=== PATIENT | female | born 1980 | race Caucasian/White ===

== ENCOUNTER 2016-12-09 23:17 | Emergency (ER) | payer OTHER ==
--- NOTE | ~2016-12-09 | CR72 ---
[facility] A Service of [facility] & [facility] RADIOLOGY TEXT RESULTS PATIENT: TERESITA DEL REAL LOCATION: [facility] : [birth year] UNIT #: [id number] AGE: [address]: Jonna Contreras MD SEX: F ORDER DR: [id number] [facility] [address] [place], [place] [address] [id number] E MR#: [id number] Acc #: [id number] NAME: TERESITA DEL REAL. : 1980 SEX: F STUDY DATE/TIME: 12/10/2016 1:24 UNIT: CFTX ROOM: STUDY DESCRIPTION: CR Chest Single View Portable Attending Physician: Jonna Contreras M.D. Ordering Physician: Ross Mireles D.O. Primary Care Physician: Primary Care Physician No MEDICAL IMAGING REPORT This report is preliminary unless electronic signature is present EXAM Chest x-ray 12/10/2016 HISTORY 36-year-old female in the ED with shortness of air after drug overdose tonight. TECHNIQUE AP portable chest x-ray. FINDINGS The exam shows no active disease. Shallow lung expansion is noted, but the lungs appear clear. Heart size and pulmonary vascularity are normal. No significant change since 09/01/2013. IMPRESSION No active disease. Dictated by... Mart Pendleton M.D. THIS IS AN ELECTRONICALLY VERIFIED REPORT Mart Pendleton M.D. at 12/10/2016 9:57 PM MARITO/jose TD: 12/10/2016 09:04 JOB #: [id number] MEDICAL IMAGING REPORT Page 1 of 1 COPY
--- NOTE | ~2016-12-09 | EKG ---
PATIENT: TERESITA DEL REAL UNIT #: [id number] Ventricular Rate: 82 BPM Atrial Rate: 82 BPM P-R Interval: 124 ms QRS Duration: 98 ms Q-T Interval: 412 ms QTC Calculation(Bezet): 481 ms P [place]out[place]: 33 degrees Calculated R [place]outle: 10 degrees Calculated T Toutle: 13 degrees Diagnosis Line: Normal sinus rhythm Diagnosis Line: RSR' or QR pattern in V1 suggests right Diagnosis Line: ventricular conduction delay Diagnosis Line: Prolonged QT Diagnosis Line: Abnormal ECG Diagnosis Line: When compared with ECG of 01-SEP-2013 04:41, Diagnosis Line: No significant change was found Diagnosis Line: Confirmed by LAXMI PETER MD ([id number]) on Diagnosis Line: 12/10/2016 10:42:03 PM INTERPRETING MD: DEACON
--- NOTE | ~2016-12-09 | CT71 ---
[facility] A Service of [facility] RADIOLOGY TEXT RESULTS PATIENT: TERESITA DEL REAL LOCATION: [facility] : 76 UNIT #: [id number] AGE: [address]: Jonna Contreras MD SEX: F ORDER DR: [id number] [facility] [address] [facility]. [place], [place] [address] [id number] E MR#: [id number] Acc #: [id number] NAME: TERESITA DEL REAL. : 1980 SEX: F STUDY DATE/TIME: 12/10/2016 1:06 UNIT: CFTX ROOM: STUDY DESCRIPTION: CT Head Wo Contrast Attending Physician: Jonna Contreras M.D. Ordering Physician: Ross Mireles D.O. Primary Care Physician: Primary Care Physician No MEDICAL IMAGING REPORT This report is preliminary unless electronic signature is present EXAM CT head, noncontrast, 12/10/2016 HISTORY 36-year-old female in the ED with confusion/mental status changes beginning tonight. Reported drug overdose and ethanol intoxication. TECHNIQUE CT examination of the head without IV contrast This CT exam was performed with one or more of the following radiation dose reduction techniques: automatic exposure control, adjustment of mA and/or kV according to patient size, and iterative reconstruction. FINDINGS The examination is negative. No evidence of intracranial hemorrhage, mass, mass effect, cerebral edema, hydrocephalus or additional abnormality. No change since the previous study of 02/03/2016. IMPRESSION Negative head CT examination. No change since 02/03/2016. Dictated by... Mart Pendleton M.D. THIS IS AN ELECTRONICALLY VERIFIED REPORT Mart Pendleton M.D. at 12/10/2016 9:57 PM MARITO/tre TD: 12/10/2016 09:01 JOB #: [id number] MEDICAL IMAGING REPORT [facility] A Service [facility] RADIOLOGY TEXT RESULTS PATIENT: TERESITA DEL REAL LOCATION: [facility] : 76 UNIT #: [id number] AGE: [address]: Jonna Contreras MD SEX: F ORDER DR: Page 1 of 1 COPY
[~2016-12-09 23:17] MED LIST: ALBUTEROL17 GM INH; AMITRYPTYLINE PO; AMOXICILLIN PO; AMOXICILLIN500 M1 PO; ANAPROX DS550 M1 PO; BACTRIM DS TABL1 TA1 PO; CELEXA PO; CELEXA20 MG PO; DARVOCET-N 1001 TA1 DOB; DESYREL100 MG PO; DICLOFENAC PO; ERY-TAB500 MG PO; FAMOTIDINE PO; FLEXERIL10 MG PO; FOLIC ACID PO; K-DUR20 ME1 PO; LIBRIUM PO; LIBRIUM5 MG PO; MEDROL PO; MOBIC PO; MULTI VITAMIN1 EACH PO; MULTIVITAMIN W-1 TAB PO; NAPROSYN500 MG PO; NO MEDICATIONS; PEN-VEE K PO; PEPCID AC20 M2 PO; PHENERGAN DM1 ML DOB; PHENERGAN W/CO120 ML PO; PHENERGAN25 M1 PO; PHENERGAN25 MG PO; PREDNISONE PO; PYRIDIUM PO; TAMIFLU75 M1 PO; THIAMINE HCL100 MG PO; TRAZODONE PO; VIBRAMYCIN100 M1 PO; VICODIN 5/500 T1 TAB PO; ZITHROMAX PO; ZOFRAN ODT4 MG PO; ZOFRAN PO
[2016-12-10 01:22] LABS: BASOPHIL# 0.1 X10e3 (0-0.3); BASOPHIL% 1.5 % (0-2.5); DIFF IND NO; EOSINOPHIL# 0.1 X10e3 (0-0.7); EOSINOPHIL% 1.1 % (0.0-7.0); HEMATOCRIT 41.5 % (35.0-45.0); HEMOGLOBIN 13.6 gm/dL (12.0-16.0); LYMPHOCYTE# 2.9 X10e3 (1.0-3.5); LYMPHOCYTE% 31.1 % (17.0-45.0); MEAN CELL VOLUME 100.6 FL (83-96); MEAN CORPUSCULAR HEMOGLOBIN 33.1 PG (28-34); MEAN CORPUSCULAR HGB CONC 32.9 g/dL (30-36); MEAN PLATELET VOLUME 9.6 FL (6.5-11.5); MONOCYTE# 0.3 X10e3 (0-1.0); MONOCYTE% 3.8 % (3.0-12.0); NEUTROPHIL# 5.7 X10e3 (1.5-7.1); NEUTROPHIL% 62.5 % (40-75); PLATELET COUNT 195 X10e3 (140-420); RED BLOOD COUNT 4.12 X10e (3.90-5.30); RED CELL DISTRIBUTION WIDTH 14.3 % (11.0-15.5); WHITE BLOOD COUNT 9.2 X10e3 (4.0-10.5)
[2016-12-10 01:38] LABS: AMPHETAMINE NEG (NEG); BARBITURATES NEG (NEG); BENZODIAZEPINES NEG (NEG); COCAINE NEG (NEG); MARIJUANA NEG (NEG); OPIATES NEG (NEG); TRICYCLIC ANTIDEPRESSANTS NEG (NEG); U METHADONE NEG (NEG)
[2016-12-10 01:39] LABS: ALBUMIN SERUM 4.3 g/dL (3.5-5.0); ALKALINE PHOSPHATASE 44 U/L (32-92); ALT (SGPT) 31 U/L (10-40); AST (SGOT) 51 U/L (10-42); BILIRUBIN, DIRECT 0.2 mg/dL (0.0-0.2); BILIRUBIN,INDIRECT 0.5 mg/dL (0.0-0.9); BILIRUBIN,TOTAL 0.7 mg/dL (0.2-2.0); BLOOD UREA NITROGEN 11 mg/dL (9-23); CALCIUM SERUM 8.5 mg/dL (8.4-10.2); CARBON DIOXIDE 19 mmol/L (22-31); CHLORIDE 106 mmol/L (100-111); CREATININE SERUM 0.5 mg/dL (0.6-1.4); GLOM FILT RATE Estimated 122.8 mL/min (>60); GLUCOSE FASTING 68 mg/dL (70-110); POTASSIUM 3.6 mmol/L (3.5-5.1); PROTEIN TOTAL SERUM 7.4 g/dL (6.0-8.3); SALICYLATE <4.0 mg/dL; SODIUM 139 mmol/L (135-145)
[2016-12-10 01:47] LABS: ACETAMINOPHEN <10 ug/mL
[2016-12-10 01:48] LABS: ALCOHOL BLOOD 338 mg/dL (0)
[2016-12-10 03:00] LABS: URINE SOURCE CLEAN CATCH
[2016-12-10 03:23] LABS: URINE APPEARANCE CLEAR; URINE BILIRUBIN NEG (NEG); URINE BLOOD NEG (NEG); URINE COLOR YELLOW; URINE GLUCOSE NEG (NEG); URINE KETONE NEG (NEG); URINE LEUKOCYTE ESTERASE NEG (NEG); URINE NITRATE NEG (NEG); URINE PROTEIN NEG (NEG); URINE SPECIFIC GRAVITY 1.012 (1.003-1.035); URINE UROBILINOGEN 0.2 MG/DL (NEG)
[2016-12-10 03:24] LABS: CULTURE INDICATED? NO
== END 2016-12-10 13:30 ==
LOC: CED 23:17 → CFTX 23:55 → CED 12-10 13:30
PROVIDERS: Emergency Medicine
DX: T43.222A Poisoning by selective serotonin reuptake inhibitors, intentional self-harm, initial encounter (principal); F10.129 Alcohol abuse with intoxication, unspecified; F17.210 Nicotine dependence, cigarettes, uncomplicated; Y90.8 Blood alcohol level of 240 mg/100 ml or more; Z79.899 Other long term (current) drug therapy
CPT/HCPCS: 36415; 51701; 70450; 71010; 80048; 80076; 80307; 81003; 82947; 84484; 84703; 85025; 93005; 96361; 96374; 96375; 99285; G0480; J2405; J2550

== ENCOUNTER 2016-12-10 10:00 | Inpatient (IN) | payer OTHER ==
--- NOTE | ~2016-12-10 | DS ---
Unit #: [id number] #: [id number] Patient: TERESITA DEL REAL [id number] [facility] [address] [place] [address] [id number] I MR#: [id number] NAME: TERESITA DEL REAL. ROOM: [facility] Age: 36 Sex: F Admission Date: 12/10/2016 : 1980 Discharge Date: 12/13/2016 Attending Physician: Marcin Bucio M.D. Primary Care Physician: Primary Care Physician No DISCHARGE SUMMARY REASON FOR ADMISSION Suicidal ideation and overdose. DIAGNOSTIC STUDIES LABORATORY RESULTS: Unremarkable. HOSPITAL COURSE The patient was admitted to inpatient unit on 12/10/2016 and discharged on 12/13/2016. The patient was treated on the inpatient unit with chemical dependency group and structured milieu. The patient was responsive to treatment and showed improvement in mood and affect. Subsequently, the patient was discharged with a plan to follow up in outpatient clinic. DISCHARGE MEDICATIONS None. DISCHARGE DIAGNOSES Psychiatric: 1. Major depressive disorder, recurrent, severe, F33.2. 2. Alcohol use disorder, severe, F10.20. Secondary diagnosis: Deferred. Medical diagnosis: None. Stressors: Psychosocial stressors. DISCHARGE INSTRUCTIONS The patient is to follow up in outpatient clinic as per social service manager. CONDITION ON DISCHARGE The patient was pleasant and cooperative. Denied any psychotic symptom or any suicidal ideation. PROGNOSIS Guarded. DIET AND ACTIVITY As tolerated. The patient was advised to follow up in IOP level of care at this time and plan to consider medication at a later date. Unit #: [id number] #: [id number] Patient: TERESITA DEL REAL Dictated by... Gavin Dior/deyanira TD: 12/14/2016 04:08 JOB #: [id number] DISCHARGE SUMMARY Page 1 of 1 X Marcin Bucio MD X DISCHARGE SUMMARY
--- NOTE | ~2016-12-10 | PN ---
Unit #: [id number] #: [id number] Patient: CHINEDU DEL REAL [id number] [facility] [address] [place] [address] [id number] I MR#: [id number] NAME: CHINEDU DEL REAL. ROOM: [facility] Age: 36 Sex: F Admission Date: 12/10/2016 : 1980 Attending Physician: Marcin Bucio M.D. Admitting Physician: Marcin Bucio M.D. Primary Care Physician: Primary Care Physician Marlin SHUKLA PROGRESS NOTES DATE 12/11/2016 DISCUSSION Chinedu Del Real is a 36-year-old female seen on 12/11/2016. Patient interviewed. Chart reviewed. Obtained information from nursing staff. Patient compliant, cooperative. Mood sad, dysphoric, withdrawn, isolative, flat affect, passive SI. Complete review of system unremarkable. MENTAL STATUS EXAMINATION General appearance, patient dressed casually. Attention span, concentration fair. Oriented in place and person. Mood and affect sad, depressed. Speech monotone. Thought process concrete. Patient reported passive SI, guarded, withdrawn. Recent and remote memory poor. Insight and judgement impaired. Vital signs, 98.4, 64, 133/91. DIAGNOSES 1. Major depressive disorder, recurrent. 2. Alcohol use disorder, severe. ASSESSMENT/PLAN Advised to continue with current programming on the inpatient unit and detox protocol. Detox monitoring. Advised to discontinue Lexapro. Dictated by... Gavin Dior/balbina TD: 12/12/2016 15:27 JOB #: [id number] Unit #: [id number] #: [id number] Patient: CHINEDU DEL REAL PROGRESS NOTES Page 1 of 1 X Marcin Bucio MD X PROGRESS NOTE
--- NOTE | ~2016-12-10 | PA ---
Unit #: [id number] #: [id number] Patient: CHINEDU DEL REAL [id number] [facility] [address] [place] [address] [id number] I MR#: [id number] NAME: CHINEDU DEL REAL. ROOM: [facility] Age: 36 Sex: F Admission Date: 12/10/2016 : 1980 Date of Assessment: Attending Physician: Marcin Bucio M.D. Admitting Physician: Marcin Bucio M.D. Primary Care Physician: Primary Care Physician No PSYCHIATRIC ASSESSMENT INFORMANTS The patient's reliability, fair; chart reliability, good. CHIEF COMPLAINT Depression and suicidal ideation. HISTORY OF PRESENT ILLNESS Chinedu Del Real is a 36-year-old female, presented with the above-mentioned complaint. The patient presented at [facility], reports taking overdose of Lexapro 23 tablets with the intention to kill herself. The patient was cooperative, understand about getting help. The patient stated that she was working in a yard and became very hot and called 911. The patient reported later taking 2 Lexapro and only 2 shots of vodka. The patient later revealed taking 23 tablets. The patient's alcohol level was 362 upon arrival. The patient reported feeling sad, depressed, suicidal ideation, depression. Needing inpatient admission at this time for psychiatric stabilization. The patient is currently on Lexapro, reported use of alcohol recently and alcohol level 362 on arrival to the hospital. Denied any history of blackout, HIV, hepatitis, or withdrawal symptom. No history of IV drug use. Needing inpatient admission at this time for psychiatric stabilization. PAST PSYCHIATRIC HISTORY Remarkable for history of previous treatment at [facility] in 2012. FAMILY HISTORY AND SOCIAL HISTORY Unremarkable. No history of abuse. No legal problem. MEDICAL HISTORY Unremarkable for any chronic medical condition. Musculoskeletal; muscle strength and tone, no atrophy or abnormal movement. Gait normal. MEDICATION HISTORY Lexapro. ALLERGIES No known drug allergies. SUBSTANCE ABUSE HISTORY Please see above. REVIEW OF SYSTEMS HEENT: Eyes, clear. Ears, nose, mouth, and throat; clear. Unit #: [id number] #: [id number] Patient: CHINEDU DEL REAL CARDIOVASCULAR: Unremarkable. RESPIRATORY: Unremarkable. GI: Unremarkable. : Unremarkable. SKIN: Unremarkable. LYMPH NODE: Unremarkable. NEUROLOGIC: Unremarkable. ENDOCRINE: Unremarkable. HEMATOLOGIC: Unremarkable. ALLERGIC/IMMUNOLOGIC: Unremarkable. MUSCULOSKELETAL: Muscle strength and tone, no atrophy or abnormal movement. Gait normal. MENTAL STATUS EXAMINATION CONSTITUTIONAL: Measurement of vital signs; temperature 98.9, pulse 64, respirations 16, blood pressure 133/91. GENERAL APPEARANCE: The patient dressed casually. The patient did not show any facial deformity. MUSCULOSKELETAL: Please see above. PSYCHIATRIC EXAMINATION Description of speech; regular rate, normal volume. Description of thought process, goal directed. Description of association, intact. Description of abnormal psychotic thinking; the patient denied any hallucination or delusions, but suicidal ideation, suicide attempt, substance abuse. Description of the patient's judgment; concerning everyday activity, poor. Social situation, poor. Concerning psychiatric condition, poor. Complete mental status examination; oriented in time, place, and person. Recent and remote memory, fair. Attention span and concentration, fair. Language, able to name object and repeat phrases. Fund of knowledge, fair. Vocabulary, fair. Mood and affect, sad and dysphoric. Insight and judgment, fair to poor. ASSETS AND LIABILITIES Assets; the patient is articulate, able to take care of her ADL. Liability; history of depression, alcohol abuse. ADMITTING DIAGNOSES Psychiatric: Major depressive disorder, recurrent, severe, F33.2; alcohol use disorder, severe, F10.20. Secondary diagnosis: Deferred. Medical diagnosis: None. Stressors: Psychosocial stressors. PSYCHIATRIC PLAN AND TREATMENT GOAL 1. Advised to admit the patient on the inpatient unit. Provide safe, supportive, and structured environment. 2. Ordered labs; CBC, CMP, UA, and UDS. 3. Advised to discontinue Lexapro at this time. Detox protocol and detox monitoring. The patient to be monitored closely. The patient to attend all the programing on the inpatient unit with group therapy, individual therapy, family session. Treatment goal to attain euthymic mood, gain insight into her problem, and learn coping skills. Unit #: [id number] #: [id number] Patient: CHINEDU DEL REAL DISCHARGE PLAN Plan to stabilize the patient and consider followup in outpatient program such as [facility] level of care. ESTIMATED LENGTH OF STAY 3 to 5 days. Dictated by... Marcin Bucio M.D. ELIDA/deyanira TD: 12/12/2016 03:49 JOB #: [id number] PSYCHIATRIC ASSESSMENT Page 1 of 1 X Marcin Bucio MD PSYCHIATRIC ASSESSMENT
--- NOTE | ~2016-12-10 | PN ---
Unit #: [id number] #: [id number] Patient: CHINEDU DEL REAL [id number] [facility] [address] [place] [address] [id number] I MR#: [id number] NAME: CHINEDU DEL REAL. ROOM: P204 Age: 36 Sex: F Admission Date: 12/10/2016 : 1980 Attending Physician: Marcin Bucio M.D. Admitting Physician: Marcin Bucio M.D. Primary Care Physician: Primary Care Physician No GAYLA PROGRESS NOTES DATE OF SERVICE 12/12/16 DISCUSSION Ms. Chinedu Del Real is a 36-year-old female seen on 12/12/16. Patient interviewed, chart reviewed, I obtained information from nursing staff. Patient compliant, cooperative. Mood sad, dysphoric but denied any suicidal or homicidal ideation. Maintained safe behavior. COMPLETE REVIEW OF SYSTEMS Unremarkable. MENTAL STATUS EXAMINATION GENERAL APPEARANCE: Patient dressed casually. ATTENTION SPAN AND CONCENTRATION: Fair. Oriented in place and person. MOOD AND AFFECT: Labile. SPEECH: Monotone. THOUGHT PROCESS: [place]. Patient denied any thoughts of harming self or others. RECENT AND REMOTE MEMORY: Poor. INSIGHT AND JUDGMENT: Poor. DIAGNOSIS Mood disorder, NOS ASSESSMENT/PLAN Advised to continue with current medication and therapeutic protocol. If needed, consider further adjustment in medication. Dictated by... Gavin Dior/norman TD: 12/13/2016 23:20 JOB #: [id number] Unit #: [id number] #: [id number] Patient: CHINEDU DEL REAL PROGRESS NOTES Page 1 of 1 X Marcin Bucio MD X PROGRESS NOTE
--- NOTE | ~2016-12-10 | HP ---
Unit #: [id number] #: [id number] Patient: CHINEDU DEL REAL [id number] [place] [address] [id number] I MR#: [id number] NAME: CHINEDU DEL REAL. ROOM: 86 Age: 36 Sex: F Admission Date: 12/10/2016 : 1980 Attending Physician: Marcin Bucio M.D. Admitting Physician: Marcin Bucio M.D. Primary Care Physician: Primary Care Physician No HISTORY AND PHYSICAL HISTORY OF PRESENT ILLNESS Chinedu is a 36 year old admitted to [facility] because of her abuse of alcohol. PAST MEDICAL HISTORY Long history of alcohol abuse. PAST SURGICAL HISTORY x1. ALLERGIES No known drug allergies. SOCIAL HISTORY Smokes one pack per day. Drinks 2 packs of liquor on a daily basis. Denies illicit drug use. FAMILY HISTORY Medically noncontributory. REVIEW OF SYSTEMS CONSTITUTIONAL: No fever or chills. HEENT: Denies any sore throat, ear pain or runny nose. CARDIOVASCULAR: Denies chest pain, irregular heart rhythm or palpitations. CHEST: Denies shortness of breath or cough. No hemoptysis. GASTROINTESTINAL: Denies nausea, vomiting, diarrhea or chronic constipation. ENDOCRINE: Denies history of increased thirst or urination. No recent significant weight loss or gain. GENITOURINARY: Denies dysuria, frequency, or hematuria. SKIN: Denies any rashes. HEMATOLOGIC: Denies history of increased bleeding or bruising. MUSCULOSKELETAL: Denies any hot, swollen joints. No generalized muscle pain. NEUROLOGIC: Denies problems with vision or speech. No frequent, severe headaches. No numbness, tingling or weakness in any extremities. Denies loss of bladder or bowel control. CURRENT MEDICATIONS 1. Detox protocol. 2. Lexapro 10 mg q. day. PHYSICAL EXAMINATION GENERAL: Alert. No apparent distress. Unit #: [id number] #: [id number] Patient: CHINEDU DEL REAL VITAL SIGNS: Blood pressure 132/90, heart rate 80, respirations 16, and temperature 98.6. WEIGHT: 156. HEIGHT: 5 feet 4 inches. SKIN: Warm and dry without rash or lesion. HEENT: Normocephalic. TMs not viewed. Oral and nasal passages clear. Conjunctivae clear. PERRLA. EOMs intact. NECK: Supple without lymphadenopathy or thyromegaly. HEART: Regular rate and rhythm without murmur. LUNGS: Clear. ABDOMEN: Soft, nontender. : Not done. EXTREMITIES: No evidence of cyanosis, clubbing or edema. Moves all without focal deficit. NEUROLOGICAL: Grossly within normal limits. Cranial Nerves: II: Visual nix are intact. III, IV AND : Extraocular movements are intact. Pupils are equal, round and reactive to light. V: Facial sensation is grossly normal. VII: Facial movements and expression are normal. VIII: Auditory acuity grossly intact. IX, X: Uvula is midline. Phonation is normal. XI: Patient shrugs shoulders and turns head normally. XII: Tongue protrudes in the midline. Sensory and Motor Function: Sensory and motor sensation is grossly normal. Motor: moves all extremities well. Coordination: Gait is normal. Deep Tendon Reflexes: Intact. IMPRESSION Psychiatric admission. RECOMMENDATIONS PSYCHIATRIC: Per psychiatrist. MEDICAL: I see no contraindication to participate in this facility's activities. MEDICAL PROGNOSIS Good. MEDICAL CONDITION Stable. Dictated by... Michel TejedaAAustin. for Gavin Marroquin/breanna TD: 12/11/2016 12:03 JOB #: [id number] Unit #: [id number] #: [id number] Patient: CHINEDU DEL REAL HISTORY AND PHYSICAL Page 1 of 1 X Christine Srivastava HISTORY AND PHYSICAL
== END 2016-12-13 14:00 | disposition home or self-care (01) | DRG 885 ==
LOC: P1E 14:05 → P2S 12-12 19:44
PROC: HZ2ZZZZ Detoxification Services for Substance Abuse Treatment (ICD-10-PCS; principal; 2016-12-10)
DX: F33.2 Major depressive disorder, recurrent severe without psychotic features (principal); F10.20 Alcohol dependence, uncomplicated; F17.210 Nicotine dependence, cigarettes, uncomplicated; Y90.8 Blood alcohol level of 240 mg/100 ml or more
CPT/HCPCS: 84703; 86592

== ENCOUNTER 2016-12-21 01:31 | Emergency (ER) | payer OTHER ==
--- NOTE | ~2016-12-21 | CR72 ---
[facility] A Service of [facility] & [facility] RADIOLOGY TEXT RESULTS PATIENT: TERESITA DEL REAL LOCATION: [facility] : [birth year] UNIT #: [id number] AGE: [address]: Jarred Martinez SEX: F ORDER DR: [id number] [facility] [address] [facility]. [place], [place] [address] [id number] E MR#: [id number] Acc #: [id number] NAME: TERESITA DEL REAL : 1980 SEX: F STUDY DATE/TIME: 12/21/2016 3:04 UNIT: [facility] ROOM: STUDY DESCRIPTION: CR Chest Single View Portable Attending Physician: Jarred Martinez P.A.-C. Ordering Physician: Jarred Martinez P.A.-C. Primary Care Physician: Primary Care Physician No MEDICAL IMAGING REPORT This report is preliminary unless electronic signature is present EXAM Portable chest, 12/21 COMPARISON 12/10/16 INDICATIONS Shortness of breath starting tonight. FINDINGS A portable view of the chest is obtained. The heart size and vascularity are normal and the lungs are clear. The bones are unremarkable. IMPRESSION No active disease. Dictated by... Lino Zambrano M.D. THIS IS AN ELECTRONICALLY VERIFIED REPORT Lino Zambrano M.D. at 12/21/2016 4:42 AM MONAE/norman TD: 12/21/2016 03:57 JOB #: [id number] MEDICAL IMAGING REPORT Page 1 of 1 COPY
[2016-12-21 03:03] LABS: BASOPHIL# 0.1 X10e3 (0-0.3); BASOPHIL% 0.8 % (0-2.5); DIFF IND NO; EOSINOPHIL# 0.1 X10e3 (0-0.7); EOSINOPHIL% 1.8 % (0.0-7.0); HEMATOCRIT 35.8 % (35.0-45.0); LYMPHOCYTE# 2.6 X10e3 (1.0-3.5); LYMPHOCYTE% 31.4 % (17.0-45.0); MEAN CELL VOLUME 99.6 FL (83-96); MEAN CORPUSCULAR HEMOGLOBIN 33.4 PG (28-34); MEAN CORPUSCULAR HGB CONC 33.5 g/dL (30-36); MEAN PLATELET VOLUME 8.8 FL (6.5-11.5); MONOCYTE# 0.4 X10e3 (0-1.0); MONOCYTE% 5.2 % (3.0-12.0); NEUTROPHIL% 60.8 % (40-75); PLATELET COUNT 191 X10e3 (140-420); RED BLOOD COUNT 3.59 X10e (3.90-5.30); WHITE BLOOD COUNT 8.3 X10e3 (4.0-10.5)
[2016-12-21 03:20] LABS: AMPHETAMINE NEG (NEG); BARBITURATES NEG (NEG); BENZODIAZEPINES NEG (NEG); COCAINE NEG (NEG); MARIJUANA NEG (NEG); OPIATES NEG (NEG); TRICYCLIC ANTIDEPRESSANTS NEG (NEG); U METHADONE NEG (NEG)
[2016-12-21 03:39] LABS: ALBUMIN SERUM 3.8 g/dL (3.5-5.0); BILIRUBIN,TOTAL 0.3 mg/dL (0.2-2.0); CALCIUM SERUM 8.4 mg/dL (8.4-10.2); CREATININE SERUM 0.5 mg/dL (0.6-1.4); GLOM FILT RATE Estimated 122.8 mL/min (>60); PROTEIN TOTAL SERUM 6.6 g/dL (6.0-8.3)
[2016-12-21 03:40] LABS: BILIRUBIN, DIRECT 0.1 mg/dL (0.0-0.2); BILIRUBIN,INDIRECT 0.2 mg/dL (0.0-0.9); POTASSIUM 2.9 mmol/L (3.5-5.1)
== END 2016-12-21 04:17 | disposition home or self-care (01) ==
LOC: CED 01:31
PROVIDERS: Physician Assistant
DX: F10.10 Alcohol abuse, uncomplicated (principal); I10 Essential (primary) hypertension; F32.9 Major depressive disorder, single episode, unspecified; F17.200 Nicotine dependence, unspecified, uncomplicated; Y90.8 Blood alcohol level of 240 mg/100 ml or more
CPT/HCPCS: 36415; 71010; 80048; 80076; 80307; 84703; 85025; 96365; 96375; 99285; G0480; J2405; J3411; J3475

== ENCOUNTER 2017-03-01 20:49 | Emergency (ER) | payer OTHER ==
[~2017-03-01] VITALS: Ht 162.6 cm; Wt 72.6 kg
--- NOTE | ~2017-03-01 | EKG ---
PATIENT: TERESITA DEL REAL UNIT #: [id number] Ventricular Rate: 79 BPM Atrial Rate: 79 BPM P-R Interval: 120 ms QRS Duration: 102 ms Q-T Interval: 402 ms QTC Calculation(Bezet): 460 ms P [place]: 38 degrees Calculated R [place]: 20 degrees Calculated T [place]: 38 degrees Diagnosis Line: Normal sinus rhythm Diagnosis Line: RSR' or QR pattern in V1 suggests right Diagnosis Line: ventricular conduction delay Diagnosis Line: Borderline ECG Diagnosis Line: When compared with ECG of 10-DEC-2016 00:51, Diagnosis Line: No significant change was found Diagnosis Line: Confirmed by LAXMI PETER MD ([id number]) on Diagnosis Line: 03/06/2017 11:09:36 PM INTERPRETING MD: DEACON
[2017-03-01 21:32] LABS: URINE SOURCE CLEAN CATCH
[2017-03-01 21:34] LABS: BASOPHIL# 0.1 X10e3 (0-0.3); BASOPHIL% 0.9 % (0-2.5); EOSINOPHIL# 0.1 X10e3 (0-0.7); EOSINOPHIL% 0.6 % (0.0-7.0); HEMATOCRIT 43.9 % (35.0-45.0); HEMOGLOBIN 14.9 gm/dL (12.0-16.0); LYMPHOCYTE# 3.3 X10e3 (1.0-3.5); LYMPHOCYTE% 30.6 % (17.0-45.0); MEAN CELL VOLUME 97.4 FL (83-96); MEAN CORPUSCULAR HEMOGLOBIN 33.1 PG (28-34); MEAN CORPUSCULAR HGB CONC 33.9 g/dL (30-36); MEAN PLATELET VOLUME 8.6 FL (6.5-11.5); MONOCYTE# 0.4 X10e3 (0-1.0); MONOCYTE% 4.2 % (3.0-12.0); NEUTROPHIL# 6.8 X10e3 (1.5-7.1); NEUTROPHIL% 63.7 % (40-75); PLATELET COUNT 227 X10e3 (140-420); RED BLOOD COUNT 4.51 X10e (3.90-5.30); RED CELL DISTRIBUTION WIDTH 13.5 % (11.0-15.5); WHITE BLOOD COUNT 10.7 X10e3 (4.0-10.5)
[2017-03-01 21:35] LABS: URINE APPEARANCE CLEAR; URINE BILIRUBIN NEG (NEG); URINE BLOOD 3+ (NEG); URINE COLOR YELLOW; URINE GLUCOSE NEG (NORM); URINE KETONE NEG (NEG); URINE LEUKOCYTE ESTERASE NEG (NEG); URINE NITRATE NEG (NEG); URINE PH 5.5 (5-8); URINE PROTEIN NEG (NEG); URINE SPECIFIC GRAVITY <=1.005 (1.003-1.035); URINE UROBILINOGEN 0.2 MG/DL (NORM)
[2017-03-01 21:36] LABS: DIFF IND NO
[2017-03-01 21:36] LABS: MICRO INDICATED? YES
[2017-03-01 21:44] LABS: URINE BACTERIA 1+ (NEG); URINE SQUAMOUS EPITHELIAL CELL FEW /[HPF]
[2017-03-01 21:46] LABS: CULTURE INDICATED? YES; URINE WBC 0-2 /[HPF] (0-5)
[2017-03-01 21:49] LABS: AMPHETAMINE NEG (NEG); BARBITURATES NEG (NEG); BENZODIAZEPINES NEG (NEG); COCAINE NEG (NEG); MARIJUANA NEG (NEG); OPIATES NEG (NEG); TRICYCLIC ANTIDEPRESSANTS NEG (NEG); U METHADONE NEG (NEG)
[2017-03-01 21:54] LABS: ACETAMINOPHEN 14 ug/mL; ALBUMIN SERUM 4.6 g/dL (3.5-5.0); ALKALINE PHOSPHATASE 59 U/L (32-92); ALT (SGPT) 31 U/L (10-40); AST (SGOT) 43 U/L (10-42); BILIRUBIN, DIRECT 0.1 mg/dL (0.0-0.2); BILIRUBIN,INDIRECT 0.6 mg/dL (0.0-0.9); BILIRUBIN,TOTAL 0.7 mg/dL (0.2-2.0); BLOOD UREA NITROGEN 7 mg/dL (9-23); CALCIUM SERUM 9.8 mg/dL (8.4-10.2); CARBON DIOXIDE 25 mmol/L (22-31); CHLORIDE 106 mmol/L (100-111); CREATININE SERUM 0.5 mg/dL (0.6-1.4); GLOM FILT RATE Estimated 121.9 mL/min (>60); GLUCOSE FASTING 92 mg/dL (70-110); MAGNESIUM 1.8 mg/dL (1.6-3.0); POTASSIUM 3.8 mmol/L (3.5-5.1); PROTEIN TOTAL SERUM 7.8 g/dL (6.0-8.3); SALICYLATE <4.0 mg/dL; SODIUM 143 mmol/L (135-145)
[2017-03-01 21:56] LABS: ALCOHOL BLOOD 436 mg/dL (0)
== END 2017-03-02 08:58 | disposition home or self-care (01) ==
LOC: SED 20:49 → CED 21:52 → SED 03-02 08:58
PROVIDERS: Emergency Medicine
DX: F10.129 Alcohol abuse with intoxication, unspecified (principal); F32.9 Major depressive disorder, single episode, unspecified; I10 Essential (primary) hypertension; F17.210 Nicotine dependence, cigarettes, uncomplicated; Y90.8 Blood alcohol level of 240 mg/100 ml or more
CPT/HCPCS: 36415; 80048; 80076; 80307; 81003; 82550; 83735; 84703; 85025; 87086; 93005; 96361; 96372; 96374; 99284; G0480; J2060; J3411; J3475; J3486

== ENCOUNTER 2017-03-03 15:47 | Emergency (ER) | payer OTHER ==
[~2017-03-03] VITALS: Ht 167.6 cm; Wt 79.4 kg
--- NOTE | ~2017-03-03 | EKG ---
PATIENT: TERESITA DEL REAL UNIT #: [id number] Ventricular Rate: 99 BPM Atrial Rate: 99 BPM P-R Interval: 114 ms QRS Duration: 90 ms Q-T Interval: 354 ms QTC Calculation(Bezet): 454 ms P [place]: 42 degrees Calculated R [place]: 8 degrees Calculated T [place]: 36 degrees Diagnosis Line: Normal sinus rhythm Diagnosis Line: Normal ECG Diagnosis Line: When compared with ECG of 10-DEC-2016 00:51, Diagnosis Line: No significant change was found Diagnosis Line: Confirmed by LAXMI PETER MD ([id number]) on Diagnosis Line: 03/04/2017 5:02:11 PM INTERPRETING MD: DEACON
[2017-03-03 16:28] LABS: BASOPHIL# 0.1 X10e3 (0-0.3); BASOPHIL% 0.7 % (0-2.5); EOSINOPHIL# 0.1 X10e3 (0-0.7); EOSINOPHIL% 0.8 % (0.0-7.0); HEMATOCRIT 43.3 % (35.0-45.0); HEMOGLOBIN 14.7 gm/dL (12.0-16.0); LYMPHOCYTE# 2.8 X10e3 (1.0-3.5); MEAN CELL VOLUME 98.2 FL (83-96); MEAN CORPUSCULAR HEMOGLOBIN 33.3 PG (28-34); MEAN CORPUSCULAR HGB CONC 33.9 g/dL (30-36); MEAN PLATELET VOLUME 8.9 FL (6.5-11.5); MONOCYTE# 0.2 X10e3 (0-1.0); MONOCYTE% 2.6 % (3.0-12.0); NEUTROPHIL# 5.5 X10e3 (1.5-7.1); NEUTROPHIL% 63.9 % (40-75); PLATELET COUNT 183 X10e3 (140-420); RED BLOOD COUNT 4.41 X10e (3.90-5.30); RED CELL DISTRIBUTION WIDTH 13.6 % (11.0-15.5); WHITE BLOOD COUNT 8.7 X10e3 (4.0-10.5)
[2017-03-03 16:29] LABS: DIFF IND NO
[2017-03-03 16:41] LABS: AMPHETAMINE NEG (NEG); BARBITURATES NEG (NEG); BENZODIAZEPINES POS (NEG); COCAINE NEG (NEG); MARIJUANA NEG (NEG); OPIATES NEG (NEG); TRICYCLIC ANTIDEPRESSANTS NEG (NEG); U METHADONE NEG (NEG)
[2017-03-03 16:54] LABS: ACETAMINOPHEN <10 ug/mL; ALBUMIN SERUM 4.3 g/dL (3.5-5.0); ALKALINE PHOSPHATASE 52 U/L (32-92); ALT (SGPT) 35 U/L (10-40); AST (SGOT) 51 U/L (10-42); BILIRUBIN, DIRECT 0.1 mg/dL (0.0-0.2); BILIRUBIN,INDIRECT 0.7 mg/dL (0.0-0.9); BILIRUBIN,TOTAL 0.8 mg/dL (0.2-2.0); BLOOD UREA NITROGEN 9 mg/dL (9-23); BUN/CREATININE RATIO 12.85; CALCIUM SERUM 8.9 mg/dL (8.4-10.2); CARBON DIOXIDE 23 mmol/L (22-31); CHLORIDE 107 mmol/L (100-111); CREATININE SERUM 0.7 mg/dL (0.6-1.4); GLOM FILT RATE Estimated 109.1 mL/min (>60); GLUCOSE FASTING 84 mg/dL (70-110); PROTEIN TOTAL SERUM 7.5 g/dL (6.0-8.3); SALICYLATE <4.0 mg/dL; SODIUM 144 mmol/L (135-145)
[2017-03-03 16:55] LABS: ALCOHOL BLOOD 485 mg/dL (0)
== END 2017-03-04 06:45 | disposition home or self-care (01) ==
LOC: CED 15:47
PROVIDERS: Emergency Medicine
DX: F10.129 Alcohol abuse with intoxication, unspecified (principal); F32.9 Major depressive disorder, single episode, unspecified; Y90.8 Blood alcohol level of 240 mg/100 ml or more
CPT/HCPCS: 80048; 80076; 80307; 82947; 85025; 93005; 96361; 96372; 96374; 99285; G0480; J3486